=== PATIENT | female | born 1975 | race Caucasian/White ===

== ENCOUNTER 2018-04-12 19:25 | Emergency (ER) | payer OTHER ==
[2018-04-12] MEDS ORDERED: SODIUM CHLORIDE 0.9% 500 ML INFUS.BAG IV ONE (19:34)
[2018-04-12] MEDS ORDERED: HALOPERIDOL LACTATE 5 MG/ML IM ONE (19:35)
[2018-04-12] MEDS ORDERED: LORazepam 2 MG/ML SDV VIAL IM ONE (19:35)
[2018-04-12 19:38] VITALS: TEMP 98.2; BMI 27.4
--- NOTE | 2018-04-12 19:38 | PDOC ---
History of Present Illness - General Stated Complaint: ALCOHOL INTOXICATION Time Seen by Provider: 04/12/18 19:27 History Source: Patient - History of Present Illness Initial Comments: 04/12/18 19:37 The patient is a 42 year old female with an unknown PMH was BIBEMS for aggressive behavior from [facility], a [employer] drinking establishment. At presentation patient is actively intoxicated w/o any active medical complaints. Denies any allergies. Past History - Past Medical History Allergies/Adverse Reactions: Allergies Allergy/AdvReac Type Severity Reaction Status Date / Time No Known Allergies Allergy Verified 04/12/18 19:38 Home Medications: Ambulatory Orders NK [No Known Home Medication] 04/12/18 Review of Systems - Review of Systems Able to Perform ROS?: No (Intoxicated) *Physical Exam - Physical Exam General Appearance: Yes: Nourished, Alcohol on Breath, Other (agitated, restrained to EMS stretcher with handcuffs) HEENT: positive: Normal Voice, Hearing Grossly Normal Neck: positive: Trachea midline, Supple Respiratory/Chest: positive: Lungs Clear, Normal Breath Sounds Cardiovascular: positive: S1, S2. negative: Edema, JVD, Murmur Vascular Pulses: Dorsalis-Pedis (R): 2+, Doralis-Pedis (L): 2+ Gastrointestinal/Abdominal: positive: Normal Bowel Sounds, Soft Extremity: positive: Normal Capillary Refill, Normal Inspection Integumentary: positive: Normal Color, Dry, Warm Neurologic: positive: Alert ED Treatment Course - LABORATORY CBC & Chemistry Diagram: 04/12/18 20:44 04/12/18 20:40 Medical Decision Making - Medical Decision Making 04/12/18 19:43 42 year old female BIBEMS from a [employer] drinking establishment for agressive behavior, intoxication. Hypertensive (182/111), Tachycardic (133) @ presentation. Will obtain basic labs, alcohol, urine toxicology, serum . Reassess. 04/12/18 20:06 S/p Haldol, Ativan. Patient examined, no C-spine, L/T/S midline spinal tenderness 04/12/18 21:25 Patient's ex partner and sister @ bedside note that patient drinks 1-2 bottles of wine, twice weekly. 04/12/18 23:03 Patient reassessed @ bedside- sleeping comfortably Self-extracted IV 04/12/18 23:04 Serum Ethanol 344 B-HCG negative 04/12/18 23:12 Patient awake, ambulatory HR 98 BP 126/86 Will continue to observe patient, encourage PO intake. Likely disposition is home pending ETOH metabolization 04/12/18 23:55 Patient appears clinically sober, ambulatory without assistance, able to dress herself, tolerating PO intake. Requesting discharge home. Case d/w patient's sister, Jewell Urbina, ( ) - will discharge patient to her care including observing patient overnight. Patient counseled on plan of care. *DC/Admit/Observation/Transfer Diagnosis at time of Disposition: Alcohol intoxication - Discharge Dispostion Disposition: HOME Condition at time of disposition: Good Decision to Admit order: No - Referrals - Patient Instructions Printed Discharge Instructions: DI for Alcohol Abuse Additional Instructions: You can take Motrin (up to 3200 mg daily) for any headache/ Should you wish to see alcohol detoxification, please call [facility] or present directly to their facility at [address] [place] [address]. [place], [place] Return to the Emergency Department for any new/worsening/concerning symptoms. - Post Discharge Activity
[2018-04-12] MEDS ORDERED: LORazepam 2 MG/ML SDV VIAL ONE (19:39)
--- NOTE | 2018-04-12 19:53 | PDOC ---
Attending Attestation - HPI HPI: 04/12/18 20:04 The patient is a 42 year old female, with an unknown significant past medical history, who presents to the emergency department with, alcohol intoxication. As per patients friend at bedside, he came into the [employer] (bar) which he own in [place] when he noticed her highly intoxicated and acting different from her baseline. Friend denies any falls at the bar, other injuries , or history of alcohol abuse. As per [place] [employer], the patient was picked up at a bar and belligerent thus, she was handcuffed to the EMS bed. Allergies: NKDA - Physicial Exam PE: 04/12/18 20:06 Agree with resident exam. - Medical Decision Making 04/12/18 22:16 Patient's sister's cell phone: [phone] <Alecia Mills - Last Filed: 04/12/18 22:16> - Resident Resident Name: Sarah Velazquez - ED Attending Attestation I have performed the following: I have examined & evaluated the patient, The case was reviewed & discussed with the resident, I agree w/resident's findings & plan - Medical Decision Making 04/12/18 23:22 42-year-old female brought in intoxicated from a local bar with no history or outward signs of trauma Alcohol level is significantly elevated likely explaining patient's history and exam Patient's sister and friend were at the bedside and confirmed that she has been drinking regularly Patient given Haldol and Ativan on arrival due to aggressive behavior inhibiting proper evaluation and treatment She is currently sleeping comfortably 11:18 AM Plan for discharge when sober with rehabilitation/detox if interested <Imelda Sena - Last Filed: 04/12/18 23:23> Attestations - Attestations 04/12/18 20:07 Documentation prepared by Alecia Mills, acting as chief medical director for Imelda Sena DO. <Alecia Mills - Last Filed: 04/12/18 22:16>
[2018-04-12 21:11] LABS: EOS % 0.6 % (0-4.5); HEMOGLOBIN 14.5 GM/dL (10.7-15.3); LYMPH % 30.2 % (8-40); MCH 32.9 pg (25.7-33.7); MCHC 35.5 g/dl (32.0-36.0); MEAN CELL VOLUME 92.6 fl (80-96); MEAN PLT VOLUME 8.9 fl (7.5-11.1); MONO % 9.5 % (3.8-10.2); NEUT % 58.7 % (42.8-82.8); PLATELET COUNT 225 K/MM3 (134-434); RBC 4.43 M/mm3 (3.60-5.2); RDW 13.7 % (11.6-15.6); WHITE BLOOD COUNT 4.6 K/mm3 (4.0-10.0)
[2018-04-12 21:58] LABS: ALBUMIN 4.3 g/dl (3.4-5.0); ALK PHOS 62 U/L (45-117); ANION GAP 11 MMOL/L (8-16); BILIRUBIN,TOTAL 0.2 mg/dL (0.2-1); BLOOD UREA NITROGEN 12 mg/dL (7-18); CALCIUM 8.3 mg/dL (8.5-10.1); CHLORIDE 109 mmol/L (98-107); CO2 22 mmol/L (21-32); CREATININE 0.6 mg/dL (0.55-1.3); GLUCOSE,RANDOM 102 mg/dL (74-106); POTASSIUM 4.3 mmol/L (3.5-5.1); SGOT/AST 30 U/L (15-37); SGPT/ALT 32 U/L (13-61); SODIUM 142 mmol/L (136-145); TOT PROT 8.5 g/dl (6.4-8.2)
[2018-04-12 23:22] VITALS: BP 126/86; PULSE 98
== END 2018-04-13 00:31 | disposition home or self-care (01) ==
LOC: JER 19:25
PROC: 3E023NZ Introduction of Analgesics, Hypnotics, Sedatives into Muscle, Percutaneous Approach (ICD-10-PCS; principal; 2018-04-12)
PROC: 3E023NZ Introduction of Analgesics, Hypnotics, Sedatives into Muscle, Percutaneous Approach (ICD-10-PCS; 2018-04-12)
DX: F10.120 Alcohol abuse with intoxication, uncomplicated (principal); Y90.8 Blood alcohol level of 240 mg/100 ml or more; I10 Essential (primary) hypertension; F91.8 Other conduct disorders
CPT/HCPCS: 36415; 80053; 80307; 84703; 85025; 99283-25